=== PATIENT | male | born 1995 | race Hispanic/Latino ===

== ENCOUNTER 2021-06-10 20:02 | Emergency (ER) | payer SELFPAY ==
[~2021-06-10] VITALS: Ht 170.2 cm; Wt 68.0 kg
[2021-06-10 20:34] LABS: APPEARANCE,URINE Clear (CLEAR); BILIRUBIN,URINE Negative (NEGATIVE); COLOR,URINE Yellow (YELLOW); GLUCOSE, URINE (UA) Negative (NEGATIVE); KETONES,URINE Negative (NEGATIVE); LEUKOCYTE ESTERASE ,URINE Negative (NEGATIVE); NITRATE,URINE Negative (NEGATIVE); OCCULT BLOOD,URINE Negative (NEGATIVE); PROTEIN,URINE Negative (NEGATIVE)
[2021-06-10 20:56] VITALS: BP 115/78
== END 2021-06-10 21:00 | disposition home or self-care (01) ==
LOC: EDH 20:02
DX: Z20.2 Contact with and (suspected) exposure to infections with a predominantly sexual mode of transmission (principal)
CPT/HCPCS: 81003; 87486; 87797

== ENCOUNTER 2021-11-14 17:42 | Emergency (ER) | payer OTHER ==
[~2021-11-14] VITALS: Ht 170.2 cm; Wt 72.6 kg
[2021-11-14] MEDS ORDERED: CEFTRIAXONE 1G VIAL IM ONE (19:00)
[2021-11-14] MEDS ORDERED: AZITHROMYCIN 250 MG TABLET PO ONE (19:00)
[2021-11-14] MEDS ORDERED: LIDOCAINE HCL MPF 1% 5ML VIAL ONE (19:28)
[2021-11-14 19:50] VITALS: BP 116/70
== END 2021-11-14 19:57 | disposition home or self-care (01) ==
LOC: EDH 17:42
DX: Z20.2 Contact with and (suspected) exposure to infections with a predominantly sexual mode of transmission (principal)
CPT/HCPCS: 87486; 87797; 96372; 99283; J0696; J3490

== ENCOUNTER 2023-04-23 17:25 | Emergency (ER) | payer BC ==
[~2023-04-23] VITALS: Ht 170.2 cm; Wt 72.6 kg
[2023-04-23 17:57] VITALS: BP 128/68; PULSE 67; RESP 16; O2SAT 96
[2023-04-23] MEDS ORDERED: LIDOCAINE HCL 1% 20 ML VIAL INJ SCH (20:00)
[2023-04-23] MEDS ORDERED: AZITHROMYCIN 250 MG TABLET PO ONE (21:30)
[2023-04-23] MEDS ORDERED: CEFTRIAXONE 1G VIAL IM ONE (21:30)
== END 2023-04-23 22:05 | disposition home or self-care (01) ==
LOC: EDH 17:25
DX: S61.211A Laceration without foreign body of left index finger without damage to nail, initial encounter (principal); N34.2 Other urethritis; W26.0XXA Contact with knife, initial encounter; Y93.89 Activity, other specified; Y92.89 Other specified places as the place of occurrence of the external cause; Y99.8 Other external cause status
CPT/HCPCS: 99284; 96372; 12002; J0696